=== PATIENT | female | born 1980 | race Caucasian/White ===

== ENCOUNTER 2018-01-15 17:24 | Emergency (ER) | payer OTHER ==
[2018-01-15 17:46] VITALS: BP 123/74; PULSE 108; RESP 18; TEMP 98.4
[2018-01-15] MEDS ORDERED: OFLOXACIN 0.3% OPHTH DROPS 5 ML BOTTLE BOTH EARS STA (18:35)
[2018-01-15] MEDS ORDERED: AMOXIC-POT CLAV 875MG STARTER 2 EACH TABLET PO STA (18:35)
--- NOTE | 2018-01-15 18:40 | ED ---
ENT HPI - General Chief complaint: ENT Stated complaint: rt ear plugged Time Seen by Provider: 01/15/18 17:38 Source: patient, RN notes reviewed, old records reviewed Mode of arrival: ambulatory Limitations: no limitations - History of Present Illness Initial comments: 37 year old female presents with inability to hear out of R ear. She is concerned for cerumen impaction. She has been using peroxide over the past few days. She states that she has not had previous ear cleaning professionally. She also reports that her left ear feels full as well. - Related Data Previous Rx's Medication Instructions Recorded Amoxic-Pot Clav 875-125Mg 1 tab PO Q12HR #20 tablet 01/15/18 [Augmentin 875-125] Carbamide Peroxide [Debrox Otic] 5 drops BOTH EARS BID #1 bottle 01/15/18 Ofloxacin 0.3% Ophth Soln [Ocuflox 5 drops BOTH EARS BID #1 bottle 01/15/18 Ophth Soln] Allergies Allergy/AdvReac Type Severity Reaction Status Date / Time No Known Allergies Allergy Verified 01/15/18 17:44 Review of Systems ROS Statement: Those systems with pertinent positive or pertinent negative responses have been documented in the HPI. ROS Other: All systems not noted in ROS Statement are negative. Constitutional: Denies: fever, chills Eyes: Denies: eye pain, vision change ENT: Reports: ear pain, hearing loss. Denies: throat pain, epistaxis Respiratory: Denies: cough, dyspnea Cardiovascular: Denies: chest pain Endocrine: Denies: fatigue Gastrointestinal: Denies: as per HPI Genitourinary: Denies: urgency Musculoskeletal: Denies: back pain Skin: Denies: rash Neurological: Denies: headache Past Medical History Past Medical History: Asthma History of Any Multi-Drug Resistant Organisms: None Reported Past Surgical History: No Surgical Hx Reported Past Psychological History: PTSD Smoking Status: Never smoker Past Alcohol Use History: None Reported Past Drug Use History: None Reported General Exam - General Exam Comments Initial Comments: 37 year old female, no distress. Limitations: no limitations General appearance: alert, in no apparent distress Head exam: Present: atraumatic, normocephalic, normal inspection Eye exam: Present: normal appearance ENT exam: Present: normal exam, mucous membranes moist. Absent: TM's normal bilaterally (bilateral cerumen impaction. Unable to visualize TM. ), normal external ear exam Neck exam: Present: normal inspection. Absent: tenderness, meningismus, lymphadenopathy Respiratory exam: Present: normal lung sounds bilaterally. Absent: respiratory distress, wheezes, rales, rhonchi, stridor Cardiovascular Exam: Present: regular rate, normal rhythm, normal heart sounds. Absent: systolic murmur, diastolic murmur, rubs, gallop, clicks GI/Abdominal exam: Present: soft, normal bowel sounds. Absent: distended, tenderness, guarding, rebound, rigid Extremities exam: Present: normal inspection, full ROM, normal capillary refill. Absent: tenderness, pedal edema, joint swelling, calf tenderness Psychiatric exam: Present: normal affect, normal mood Skin exam: Present: warm, dry, intact, normal color. Absent: rash Course Vital Signs 01/15/18 17:44 Temperature 98.4 F Pulse Rate 108 H Respiratory 18 Rate Blood Pressure 123/74 O2 Sat by Pulse 98 Oximetry Procedures - Ear Wax Removal Both Ears Ear Canal Irrigated by: other (PA) Ear Canal Irrigated With: warm saline using syringe/angiocath Ear Canal(s) Curetted: plastic scoops, plastic loops Results: Re-examined: some cerumen remains Ear Canal: bleeding Noted (R ear ) Patient Tolerated Procedure: well Complications: pain Additional Comments: Unable to completely visualize TM after cerumen removal due to pain and not letting me procede. Patient has small abrasion over Right ear canal. Large clot of cerumen removed from R ear and Left ear. Medical Decision Making - Medical Decision Making 37 year old female with R ear hearing loss. SHe has significant cerumen impaction bilaterally. At this time I removed a large amount of cerumen with syringe and saline. She did have some pain, and would not let me complete the entire removal. She will be started on antibiotic ear drops and due to inability to see TM, will cover for otitis media with augmentin as well. Discussed she needs to see ENT for cerumen removal. REturn parameters discussed. Disposition Clinical Impression: Cerumen impaction, Otitis externa Disposition: HOME SELF-CARE Condition: Good Instructions: Earache (ED) Additional Instructions: Patient has a follow-up with primary care physician and deaf/hard of hearing specialist. Patient should use debrox drops to help soften the wax as well as use antibiotic drops. Take medication as prescribed. Return to emergency department if any alarming signs or symptoms occur. Prescriptions: Amoxic-Pot Clav 875-125Mg [Augmentin 875-125] 1 tab PO Q12HR #20 tablet Carbamide Peroxide [Debrox Otic] 5 drops BOTH EARS BID #1 bottle Ofloxacin 0.3% Ophth Soln [Ocuflox Ophth Soln] 5 drops BOTH EARS BID #1 bottle Is patient prescribed a controlled substance at d/c from ED?: No Referrals: Micky Ross MD [Primary Care Provider] - 1-2 days Jonah Francois MD [STAFF PHYSICIAN] - 1-2 days Time of Disposition: 18:38
== END 2018-01-15 18:57 | disposition home or self-care (01) ==
LOC: EC 17:24
DX: H61.23 Impacted cerumen, bilateral (principal); H66.93 Otitis media, unspecified, bilateral; S00.411A Abrasion of right ear, initial encounter; X58.XXXA Exposure to other specified factors, initial encounter
CPT/HCPCS: 69210; 99283